=== PATIENT | female | born 1950 | race Caucasian/White ===

== ENCOUNTER 2017-12-18 06:45 | Emergency (ER) | payer MEDICARE ==
[~2017-12-18] VITALS: Ht 152.4 cm; Wt 80.7 kg
[~2017-12-18 06:45] MED LIST: CIPR500 PO; Excedrin Extra1 EACH PO; FLUT.05NI; HYDR1TAB94 PO; OMEP20ER PO; [UNRECOGNIZED DRUG - OTHER]
[2017-12-18] MEDS ORDERED: Norco 5-325 Ta1 EACH PO (07:20)
[2017-12-18] MEDS ORDERED: PARO20 PO (07:48)
== END 2017-12-18 07:45 | disposition home or self-care (01) ==
LOC: ER 06:45
DX: S01.511A Laceration without foreign body of lip, initial encounter (principal); Z79.899 Other long term (current) drug therapy; Z79.82 Long term (current) use of aspirin; W01.0XXA Fall on same level from slipping, tripping and stumbling without subsequent striking against object, initial encounter
CPT/HCPCS: 12011; 90471; 90714; 99283

== ENCOUNTER 2017-12-26 09:13 | Emergency (ER) | payer MEDICARE ==
[~2017-12-26] VITALS: Ht 152.4 cm; Wt 58.1 kg
[~2017-12-26 09:13] MED LIST changes: +Norco 5-325 Ta1 EACH PO; +PARO20 PO
== END 2017-12-26 09:50 | disposition home or self-care (01) ==
LOC: ER 09:13
DX: S01.511D Laceration without foreign body of lip, subsequent encounter (principal); W01.198D Fall on same level from slipping, tripping and stumbling with subsequent striking against other object, subsequent encounter; Z79.899 Other long term (current) drug therapy; Z79.82 Long term (current) use of aspirin
CPT/HCPCS: 99281

== ENCOUNTER 2020-12-21 05:58 | Inpatient (IN) | payer MEDICARE ==
[~2020-12-21] VITALS: Ht 152.4 cm; Wt 82.8 kg
[~2020-12-21 05:58] MED LIST changes: +METO25 PO
--- NOTE | 2020-12-21 06:13 | NUR ---
History, Chart, Medications and Allergies reviewed before start of procedure.Patient confirms NPO status and agrees with scheduled surgery. Patient denies allergy to acetaminophen, which was removed from her allergy list. Patiet denies allergic reaction to hydrocodone, but states she gets n/v and headache. Updated hydrocodone to adverse reaction.
--- NOTE | 2020-12-21 06:37 | NUR ---
Lungs clear T/O to Auscultation.
--- NOTE | 2020-12-21 12:05 | NUR ---
pt arrived to room on own bed, a/0 x 4, pleasant/coopertive, denies pain, denies n/v, operative limb in immobilizer, walked into bathroom with assistance and voided, provided with room oriented and PO intake. post op vs commenced and stable.
--- NOTE | 2020-12-21 17:03 | NUR ---
THIS RN BEEN GIVEN REPORT AND IS ASSUMING CARE OF PT AT THIS TIME.
--- NOTE | 2020-12-22 04:25 | NUR ---
SHIFT SUMMARY POD#1 LEFT TSA. [id number]. DISCOMFORT CONTROLLED WITH SCHEDULED TORADOL/TYLENOL. NO NAUSEA/EMESIS. DRESSING TO LEFT SHOULDER C/D/I. BRUISING NOTED TO POSTERIOR UPPER ARM. PT HAD NERVE BLOCK TO LUE, REPORTING NUMBNESS/TINGLING TO LUE SINCE SURGERY, PT REPORTING INCREASED MOVEMENT IN FINGERS THIS AM. PT UP TO RESTROOM SBA. GOOD PO INTAKE + OUTPUT. PT RESTING INTERMITTENTLY THIS AM. CURRENTLY PT IS AWAKE IN ROOM WATCHING TV WITH CALL LIGHT IN REACH.
[2020-12-22 04:45] LABS: BASOPHILS ABSOLUTE AUTO 0.01 K/mm3 (0.00-0.23); BASOPHILS PERCENT AUTO 0 % (0-2); EOSINOPHILS PERCENT AUTO 0 % (0-6); Hematocrit 37.2 % (33.0-51.0); Hemoglobin 12.3 g/dL (11.5-16.0); IMMATURE GRAN ABSOLUTE AUTO 0.06 K/mm3 (0.00-0.10); IMMATURE GRAN PERCENT AUTO 1 % (0-1); LYMPHOCYTES ABSOLUTE AUTO 0.68 K/mm3 (0.84-5.20); LYMPHOCYTES PERCENT AUTO 5 % (21-46); MONOCYTES ABSOLUTE AUTO 0.73 K/mm3 (0.16-1.47); MONOCYTES PERCENT AUTO 6 % (4-13); Mean Corpuscular HGB 29.6 pg (26.0-34.0); Mean Corpuscular HGB Conc 33.1 g/dL (31.5-36.5); Mean Corpuscular Volume 90 fL (80-100); Mean Platelet Volume 9.6 fL (9.1-12.4); NEUTROPHILS ABSOLUTE AUTO 11.72 K/mm3 (1.96-9.15); NEUTROPHILS PERCENT AUTO 89 % (41-73); Platelet Count 252 K/mm3 (150-400); RDW Coefficient Variation 12.7 % (11.7-14.2); RDW Standard Deviation 41.9 fL (35.1-46.3); Red Blood Cell Count 4.15 M/mm3 (3.80-5.20)
[2020-12-22 05:07] LABS: Anion Gap 5 mmol/L (6-16); Blood Urea Nitrogen 16 mg/dL (8-24); Bun/Creatinine Ratio 20.1 (12.0-20.0); CO2, Blood 28 mmol/L (21-32); Calcium, Blood 8.2 mg/dL (8.5-10.1); Chloride, Blood 108 mmol/L (98-108); Glomerular Filtration Rate >60 (60-); Glucose, Blood 114 mg/dL (70-99); Magnesium, Blood 1.9 mg/dL (1.6-2.4); Sodium, Blood 141 mmol/L (136-145)
--- NOTE | 2020-12-22 08:23 | NUR ---
HERE TO SEE PT RECENTLY.
[2020-12-22] MEDS ORDERED: OXYC5 PO (10:21)
[2020-12-22] MEDS ORDERED: Masophen500 MG PO (10:21)
--- NOTE | 2020-12-22 10:40 | NUR ---
DISCHARGE: PT EATING AND DRINKING, VOIDING, PASSING GAS. PT REPORTS PAIN CONTROLLED ON PO PAIN MEDICATION. PT BEEN CLEARED BY OT AND PT TO GO HOME TODAY. PT HAS SLING IN PLACE. POLAR PAC IN PLACE. PT/FAMILY REPORTS UNDERSTANDING OF DISCHARGE INSTRUCTIONS. PT IV OUT WNL. NO OTHER IV IN PLACE. PT SENT WITH PAPERWORK INCLUDING SCRIPT, DRESSING SUPPLIES AND POLAR PAC. PT REPORTS HAVING ALL BELONGINGS. PT REQUEST TO WALK OUT. PT GETTING RIDE FROM FAMILY HOME.
--- NOTE | 2020-12-22 10:50 | NUR ---
12/22/20 1050 Melody Peralta VERIFICATIONS: EDIT CHART.
== END 2020-12-22 11:24 | disposition home or self-care (01) | DRG 483 ==
LOC: ORSCMMR 05:58 → ORD 07:30 → ORSCMMR 07:30 → SURS 07:54 → ORSCMMR 07:54 → SURS 12:00
PROVIDERS: ADMIT Orthopaedic Surgery
PROC: 3E02340 Introduction of Influenza Vaccine into Muscle, Percutaneous Approach (ICD-10-PCS; 2020-12-21)
PROC: 0RRK0JZ Replacement of Left Shoulder Joint with Synthetic Substitute, Open Approach (ICD-10-PCS; principal; 2020-12-21 07:30)
DX: M19.012 Primary osteoarthritis, left shoulder (principal); G43.909 Migraine, unspecified, not intractable, without status migrainosus; J45.909 Unspecified asthma, uncomplicated; N18.9 Chronic kidney disease, unspecified; I12.9 Hypertensive chronic kidney disease with stage 1 through stage 4 chronic kidney disease, or unspecified chronic kidney disease; Z98.890 Other specified postprocedural states; Z87.891 Personal history of nicotine dependence; Z88.6 Allergy status to analgesic agent; Z88.5 Allergy status to narcotic agent; I25.2 Old myocardial infarction; Z23 Encounter for immunization
CPT/HCPCS: 36415; 73030; 80048; 83735; 85025; 88300; 88311; 97110; 97116; 97162; 97166; 97530; 97535; A9270; C1776; J0171; J0690; J0735; J1100; J1885; J2250; J2405; J2704; J2795; J3010; J7050; J7120